=== PATIENT | female | born 1980 | race Caucasian/White ===

== ENCOUNTER 2016-11-04 10:12 | Emergency (ER) | payer OTHER ==
[~2016-11-04] VITALS: Ht 167.6 cm; Wt 90.9 kg
[2016-11-04 10:19] VITALS: BP 130/80; PULSE 101; RESP 18; O2SAT 97
--- NOTE | 2016-11-04 11:31 | ED.REPORT ---
HPI-Extremity Problem Upper Date of Service Nov 04, 2016 ED Provider: Doc,Ed MD History of Present Illness: broke arm 3 weeks ago, fell. went to [facility], placed in a splint sent to [facility], turned away because of insurance. primary care is no one. normally healthy. Nursing Notes Stated Complaint: LEFT ARM INJURY Chief Complaint: Extremity Trauma Nursing Notes Reviewed: Yes Allergies: Coded Allergies: No Known Allergies (Unverified , 10/08/15) General Time Seen by MD: 11:31 Chief Complaint Arm injury left Hx Obtained From: Patient Onset Occurred: More than a week ago... 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 Alcohol Use: Denies alcohol use Occupation single no work or school 11/04/2016 Ambulatory Status Independent Review of Systems Basic Review of Systems Eyes: Vision NL, No discharge : No dysuria, No frequency Psychiatric: Normal thought content Physical Exam Initial Vital Signs Vital Signs (First) Date Time Temp Pulse Resp B/P Pulse Ox O2 Delivery O2 Flow Rate FiO2 11/04/16 10:19 35.8 101 18 130/80 97 Room Air Initial VS: Reviewed, Vital signs normal General/Constitutional: Well-developed, Well-nourished Head / Eyes: Atraumatic, Normocephalic, PERRL ENT: Mucous membranes moist, Conjunctiva normal, No scleral icterus Neck: Supple, Non-tender, Full range of motion Respiratory: Breath sounds normal, Clear to auscultation, No respiratory distress Cardiovascular: Regular rate & rhythm, Heart sounds normal, Intact distal pulses Abdomen / GI: Soft, Non-tender, No guarding, No rebound, No distention Back: No CVA tenderness Lymphatic: No lymphadenopathy Lower Extremities: Vascular intact, Neuro intact, No swelling, No tenderness Skin: Warm, Dry, No cyanosis Neurologic: Alert, Oriented, Nonfocal Psychiatric: Mood/affect normal, Behavior normal, Normal thought content General/Constitutional: Awake, Alert, No acute distress Respiratory / Chest: Atraumatic, Breath sounds NL, Breath sounds = bilat, No respiratory distress Cardiovascular: Heart rate NL, Regular rhythm, Heart sounds NL, No gallop splint removed from left lower extremity. sensation intact distally, cap refill less than 2 sec. Interpretation & Diagnostics X-Ray Interpretation Xray Interpretation: PROCEDURE: X-RAY LEFT FOREARM, TWO VIEWS ([id number]) INDICATIONS: fall about 3 weeks ago TECHNIQUE: 2 views of the forearm were acquired. COMPARISON: None. FINDINGS: Bones: There is a subacute appearance of nondisplaced lucency within the distal left radius. Soft tissues: No suspicious soft tissue calcifications or masses. IMPRESSION: Subacute appearance of distal left radial fracture. Re-Eval/Medical Decision Med Decision/Clinical Course 36 year old female presents to the ER for care for her arm fracture. Exam is concictent with healing fracture. No sign of compartment syndrome or cellulitis. Patient is resplinted and provided follow up instructions for local ortho. Discharge & Departure Impression: Primary Impression: Distal radius fracture, left Encounter type: subsequent encounter Fracture type: closed Fracture healing : with routine healing Disposition: Home Patient Instructions: Arm Fracture in Adults (ED) Additional Instructions: The x-ray indicates the fracture appears to be healing. You have been placed in a new splint. Please call Dr. Perez for a follow up appointment. You can purchase a cast protector at any drug store to keep the splint dry. Use ibuprofen 800 mg up to 3 times a day as needed for discomfort. Can use hydrocodone 1 at night as needed for severe pain # 20. I am sorry you fell. I hope you heal quickly. Please follow with primary care as needed. Referrals: Demetrio Morris MD (PCP) Cain Perez MD EDSupervising Provider for APC: Xu Rivero MD copies to: Demetrio Morris MD; Cain Perez MD, Sue ARNP Nov 04, 2016 11:31
--- NOTE | 2016-11-04 13:35 | DRSVH ---
PROCEDURE: X-RAY LEFT FOREARM, TWO VIEWS ([id number]) INDICATIONS: fall about 3 weeks ago TECHNIQUE: 2 views of the forearm were acquired. COMPARISON: None. FINDINGS: Bones: There is a subacute appearance of nondisplaced lucency within the distal left radius. Soft tissues: No suspicious soft tissue calcifications or masses. IMPRESSION: Subacute appearance of distal left radial fracture. Dictated by: Sona Olsen M.D. on 11/04/2016 at 13:32 Approved by: Sona Olsen M.D. on 11/04/2016 at 13:33
[2016-11-04 13:37] VITALS: BP 130/80; PULSE 101; RESP 18; O2SAT 97
== END 2016-11-04 12:59 | disposition home or self-care (01) ==
LOC: SED 10:12
DX: S52.502D Unspecified fracture of the lower end of left radius, subsequent encounter for closed fracture with routine healing (principal); F17.210 Nicotine dependence, cigarettes, uncomplicated; W19.XXXD Unspecified fall, subsequent encounter; Y93.9 Activity, unspecified; Y92.9 Unspecified place or not applicable; Y99.9 Unspecified external cause status